=== PATIENT | female | born 1975 | race Hispanic/Latino ===

== ENCOUNTER 2018-08-15 05:46 | Day surgery (SDC) | payer OTHER, BC ==
[2018-08-09 11:05] VITALS: BP 140/85
[~2018-08-15] VITALS: Ht 165.1 cm; Wt 84.6 kg
[2018-08-15] VITALS (11 sets, daily range): BP systolic 111–134; BP diastolic 68–91
[~2018-08-15 05:46] MED LIST: CEFAZOLIN SODIUM 1 GM VIAL IVP SCH
[2018-08-15] MEDS ORDERED: LACTATED RINGERS 1000ML 1,000 ML IV ONE (06:08)
[2018-08-15] MEDS ORDERED: CEFAZOLIN SODIUM 1 GM VIAL ONE (06:08)
--- NOTE | 2018-08-15 06:20 | NUR ---
VALUABLES: CLOTHING GIVEN TO SPOUSE. PATIENT STATED LEFT READING GLASSES AND CELL PHONE IN CAR. NO OTHER VALUABLES BROUGHT TO HOSPITAL VOICED PER PATIENT.
[2018-08-15] MEDS ORDERED: SODIUM BICARB [NEONATAL] 4.2% 10ML SYG ONE (06:54)
[2018-08-15] MEDS ORDERED: LIDOCAINE HCL 1% 20 ML VIAL ONE (06:54)
[2018-08-15] MEDS ORDERED: LIDOCAINE PF 2% 5ML ABBOJECT ONE (07:12)
[2018-08-15] MEDS ORDERED: ONDANSETRON HCL 4 MG/2 ML VIAL ONE (07:13)
[2018-08-15] MEDS ORDERED: PROPOFOL 10 MG/ML 20ML VIAL IV ONE (07:13)
[2018-08-15] MEDS ORDERED: DEXAMETHASONE SOD PHOSPHATE 10MG/ML 1ML VIAL ONE (07:13)
[2018-08-15] MEDS ORDERED: MIDAZOLAM HCL 1 MG/ML 2ML VIAL ONE (07:13)
[2018-08-15] MEDS ORDERED: FENTANYL CITRATE PF 50 MCG/1 ML 2ML VIAL ONE ×2 (07:14→07:24)
[2018-08-15] MEDS ORDERED: IOPAMIDOL 10 ML VIAL ONE (07:32)
== END 2018-08-15 09:20 | disposition home or self-care (01) ==
LOC: DAH 05:46
PROVIDERS: ATTEND Neurological Surgery
DX: M53.3 Sacrococcygeal disorders, not elsewhere classified (principal); Z79.899 Other long term (current) drug therapy; E66.9 Obesity, unspecified
CPT/HCPCS: 27096; 81025; 96365; A4215; A4218; J0690; J1030; J1100; J2001; J2250; J2405; J2704; J3010 ×2; J3490; J7030; J7120; Q9966; 77002